=== PATIENT | female | born 1950 | race Caucasian/White ===

== ENCOUNTER → 2020-11-11 | Day surgery (SDC) | payer OTHER ==
[~2020-11-11] VITALS: Ht 165.1 cm; Wt 54.6 kg
[~2020-11-11] MED LIST: FLEXERIL5 MG PO; FLUOXETINE HCL20 MG PO
== END | disposition home or self-care (01) ==
LOC: FAS 09:45
DX: Z12.11 Encounter for screening for malignant neoplasm of colon (principal); Z80.0 Family history of malignant neoplasm of digestive organs; F41.9 Anxiety disorder, unspecified; K64.8 Other hemorrhoids; K63.89 Other specified diseases of intestine
CPT/HCPCS: J1610; J2250; J2704; J7120

== ENCOUNTER 2021-03-11 12:54 | Emergency (ER) | payer OTHER | END 2021-03-11 15:32 | disposition home or self-care (01) | LOC: FER 12:54 | DX: S20.20XA Contusion of thorax, unspecified, initial encounter (principal); X58.XXXA Exposure to other specified factors, initial encounter | CPT/HCPCS: 71101; 93005 ==

== ENCOUNTER 2021-05-08 10:04 | Emergency (ER) | payer OTHER | END 2021-05-08 13:22 | disposition home or self-care (01) | LOC: FER 10:04 | DX: U07.1 COVID-19 (principal); Z23 Encounter for immunization | CPT/HCPCS: M0245; Q0245 ==

== ENCOUNTER 2021-05-10 10:08 | Emergency (ER) | payer OTHER ==
[2021-05-10 11:55] LABS: BASOPHIL 0.1 % (0-2); EOSINOPHIL 0 % (0-7); HCT 31.9 % (37.0-47.0); HGB 11.1 g/dl (12.5-16.0); LYMPHOCYTE 8.2 % (15-48); MCH 29.9 pg (25.0-31.0); MCHC 34.8 g/dL (32.0-36.0); MPV 10.8 fL (6.0-9.5); NEUTROPHIL 83.3 % (41-80); NRBC 0; PLT 161 K/uL (150-400); RBC 3.71 M/uL (4.20-5.40); RDW 13.3 % (11.5-14.0); WBC 11.3 K/uL (4.0-10.5)
[2021-05-10 12:13] LABS: ALBUMIN 3.2 g/dL (3.4-5.0); BILIRUBIN - TOTAL 0.6 mg/dL (0.2-1.0); BUN/CREAT RATIO (CALC) 11.9 RATIO; CREATININE 0.67 mg/dL (0.51-0.95); GLOBULIN (CALCULATION) 3.3 g/dL; POTASSIUM 3.5 mmol/L (3.5-5.1); TOTAL PROTEIN 6.5 g/dL (6.4-8.2)
[2021-05-10] MEDS ORDERED: VIBRAMYCIN100 MG PO (13:55)
[2021-05-10] MEDS ORDERED: AUGMENTIN 875-1 EACH PO (13:55)
== END 2021-05-10 14:05 | disposition home or self-care (01) ==
LOC: FER 10:08
PROVIDERS: Internal Medicine
DX: U07.1 COVID-19 (principal); J12.82 Pneumonia due to coronavirus disease 2019; E87.1 Hypo-osmolality and hyponatremia
CPT/HCPCS: 36415; 36600; 71275; 80053; 82803; 85025; Q9967

== ENCOUNTER 2021-05-13 09:15 | Emergency (ER) | payer OTHER ==
[~2021-05-13 09:15] MED LIST changes: +AUGMENTIN 875-1 EACH PO; +VIBRAMYCIN100 MG PO
== END 2021-05-13 11:11 | disposition home or self-care (01) ==
LOC: FER 09:15
DX: U07.1 COVID-19 (principal)
CPT/HCPCS: 94010; 94664